=== PATIENT | female | born 1960 | race Caucasian/White ===

== ENCOUNTER 2021-07-13 19:52 | Inpatient (IN) ==
[2021-07-14 00:16] LABS: Influenza A PCR Negative (Negative); Influenza B PCR Negative (Negative); Resp. Syncytial Virus PCR Negative (Negative); SARS-CoV-2 by PCR (In House) Negative (Negative)
[2021-07-14] MEDS ORDERED: *HR* LORazepam 2 MG/ML VIAL IM PRN (00:38)
[2021-07-14] MEDS ORDERED: haloperidoL 5 MG TABLET PO PRN (00:38)
[2021-07-14] MEDS ORDERED: Mag Hydrox/Al Hydrox/Simeth 30 ML UDC PO PRN (00:38)
[2021-07-14] MEDS ORDERED: traZODone 50 MG TABLET PO PRN (00:38)
[2021-07-14] MEDS ORDERED: *HR* LORazepam 1 MG TABLET PO PRN (00:38)
[2021-07-14] MEDS ORDERED: hydrOXYzine pamoate 25 MG CAPSULE PO PRN (00:38)
[2021-07-14] MEDS ORDERED: MOM Conc 10 ML UD.LIQ PO PRN (00:38)
[2021-07-14] MEDS ORDERED: Haloperidol Lactate 5 MG/ML VIAL IM PRN (00:38)
[2021-07-14] MEDS: Ibuprofen 400 MG TABLET PO PRN ×2 (02:14→21:07)
[2021-07-14] MEDS: Levothyroxine 25 MCG TABLET PO SCH (12:34)
[2021-07-14] MEDS: Gabapentin 300 MG CAPSULE PO SCH (21:07)
[2021-07-15] MEDS: Levothyroxine 25 MCG TABLET PO SCH (06:53)
[2021-07-15] MEDS ORDERED: Aspirin Enteric Coated 81 MG Tablet PO SCH (09:00)
[2021-07-15] MEDS ORDERED: *HR* Glimepiride 2 MG TABLET PO SCH (09:00)
[2021-07-15 10:07] VITALS: BP 143/87; PULSE 90; TEMP 97.1; O2SAT 98
[2021-07-15] MEDS: Gabapentin 300 MG CAPSULE PO SCH (11:34)
[2021-07-15] MEDS: Ibuprofen 400 MG TABLET PO PRN (11:34)
== END 2021-07-15 17:00 | disposition home or self-care (01) | DRG 881 ==
LOC: EMEROOARM 19:52 → 1ANU 07-14 00:35
PROVIDERS: ADMIT Psychiatry & Neurology Psychiatry; ATTEND Psychiatry & Neurology Psychiatry